=== PATIENT | female | born 1945 | race Caucasian/White ===

== ENCOUNTER 2016-06-04 10:06 | Emergency (ER) | payer OTHER ==
[~2016-06-04] VITALS: Ht 165.1 cm; Wt 60.5 kg
[2016-06-04 11:42] VITALS: BP 149/75
== END 2016-06-04 11:45 | disposition home or self-care (01) ==
LOC: EME 10:06
DX: S20.212A Contusion of left front wall of thorax, initial encounter (principal); V49.50XA Passenger injured in collision with unspecified motor vehicles in traffic accident, initial encounter
CPT/HCPCS: 99281; 99284